=== PATIENT | male | born 1980 | race Caucasian/White ===

== ENCOUNTER 2017-11-07 22:59 | Emergency (ER) | payer OTHER ==
[2017-11-07 23:31] VITALS: BP 117/62; PULSE 82; TEMP 97.7; BMI 27.1
[2017-11-08] MEDS ORDERED: ACETAMINOPHEN 325 MG TABLET (FP) ONE (00:30)
[2017-11-08] MEDS ORDERED: ACETAMINOPHEN 500 MG TABLET (FP) PO ONE (00:40)
[2017-11-08] MEDS ORDERED: SODIUM CHLORIDE 0.9% 500 ML INFUS.BAG IV ONE (00:40)
--- NOTE | 2017-11-08 00:41 | PDOC ---
History of Present Illness - General Chief Complaint: Pain Stated Complaint: ABD PAIN Time Seen by Provider: 11/08/17 00:18 - History of Present Illness Initial Comments: 11/08/17 00:41 37 y.o. male presents with 5 day h/o R sided abdominal pain that is "sharp/ stabbing" constant with no radiation to his scrotum or flank. Patient notes associated NBNB emesis as well as non-bloody watery stools. Patient denies any fevers/chills and notes he has been tolerating PO intake though notes decreased appetite secondary to his symptoms. Pateitn further denies any dysuria/ hematuria or scrotal pain. Patient denies any chest pain, dyspnea, sick contacts or recent travel. Allergy: Lisinopril Surgical: ventral hernia repair, cataract Social: denies nicotine, denies alcohol, denies recreational drugs Past History - Past Medical History Allergies/Adverse Reactions: Allergies Allergy/AdvReac Type Severity Reaction Status Date / Time lisinopril Allergy Verified 11/07/17 23:30 Home Medications: Ambulatory Orders Hydrocodone/Ibuprofen [Vicoprofen 200-7.5 mg Tab] 1 each PO Q6H #12 tablet 08/15 Ibuprofen [Motrin -] 800 mg PO TID #30 tablet 08/15/15 Cardiac Disorders: Yes (afib) COPD: No HTN: Yes (no meds) - Immunization History Immunization Up to Date: No - Suicide/Smoking/Psychosocial Hx Smoking History: Current some day smoker Have you smoked in the past 12 months: No Number of Cigarettes Smoked Daily: 2 Information on smoking cessation initiated: No Hx Alcohol Use: No Drug/Substance Use Hx: Yes (Marijuana) Substance Use Type: Alcohol, Marijuana Review of Systems - Review of Systems Constitutional: No: Chills, Fever HEENTM: No: Eye Pain, Recent change in vision, Throat Pain Respiratory: No: Cough, Shortness of Breath, Stridor, Wheezing Cardiac (ROS): No: Chest Pain, Lightheadedness, Palpitations, Syncope ABD/GI: Yes: Diarrhea, Poor Appetite, Vomiting, Abdominal cramping. No: Constipated : No: Burning, Dysuria, Testicular Pain *Physical Exam - Vital Signs Last Vital Signs Temp Pulse Resp BP Pulse Ox 97.7 F 82 18 117/62 97 11/07/17 23:08 11/07/17 23:08 11/07/17 23:08 11/07/17 23:08 11/07/17 23:08 - Physical Exam General Appearance: Yes: Nourished, Appropriately Dressed HEENT: positive: EOMI, LIBAN Neck: positive: Tender, Supple Respiratory/Chest: positive: Lungs Clear. negative: Decreased Breath Sounds, Crackles, Stridor, Wheezing Cardiovascular: positive: S1, S2. negative: Murmur, Gallop/S3 Gastrointestinal/Abdominal: positive: Soft, Other ((-) Porter's sign; (+) RLQ tenderness, rebound, (-) peritoneal signs). negative: Hernia, Mass Musculoskeletal: negative: CVA Tenderness (R), CVA Tenderness (L) Extremity: positive: Normal Capillary Refill, Normal Inspection Integumentary: positive: Normal Color, Dry, Warm Neurologic: positive: Fully Oriented, Alert ED Treatment Course - LABORATORY CBC & Chemistry Diagram: 11/08/17 00:34 11/08/17 00:34 Medical Decision Making - Medical Decision Making 11/08/17 00:55 37 y.o. male with 5 day h/o sharp RLQ pain with associated emesis and loose stools. Rebound tenderness without peritoneal signs on PE. DDx includes appendicitis, bilary disease, colitis. Will obtain CBC, CMP + CT Abdomen. Reasess. 11/08/17 03:16 CT abdomen negative for acute appendicitis, normal liver, pancreas, kidneys, notes diverticulosis w/o acute diverticulitis. No leukocytosis, no electrolyte derangement. Patient resting comfortably, will send urine to r/o cystitis. 11/08/17 06:58 UA shows trace blood, nitrite (-), leukocyte esterase (-). Patient tolerating PO intake, ambulatory. Will discharge home with return precaution and instruction to f/u with PMD in the next 48 hours. *DC/Admit/Observation/Transfer Diagnosis at time of Disposition: Abdominal pain - Discharge Dispostion Disposition: HOME Condition at time of disposition: Fair Admit: No - Referrals - Patient Instructions Printed Discharge Instructions: DI for Abdominal Pain-Adult Additional Instructions: Follow up with your primary care doctor in the next 48 hours. Return to the Emergency Department for any new/worsening/concerning symptoms. - Post Discharge Activity
[2017-11-08 00:42] LABS: BASO % 0.4 % (0-2.0); EOS % 4.3 % (0-4.5); HEMATOCRIT 41.7 % (35.4-49); HEMOGLOBIN 14.5 GM/dL (11.7-16.9); LYMPH % 26.8 % (8-40); MCHC 34.7 g/dl (32.0-35.9); MEAN CELL VOLUME 92.1 fl (80-96); MEAN PLT VOLUME 8.7 fl (7.5-11.1); MONO % 7.1 % (3.8-10.2); NEUT % 61.4 % (42.8-82.8); PLATELET COUNT 270 K/MM3 (134-434); RBC 4.52 M/mm3 (4.00-5.60); RDW 13.4 % (11.9-15.9)
[2017-11-08 01:08] LABS: ALBUMIN 3.7 g/dl (3.4-5.0); ANION GAP 9 (8-16); BILIRUBIN,TOTAL 0.3 mg/dL (0.2-1.0); BLOOD UREA NITROGEN 22 mg/dL (7-18); CALCIUM 8.3 mg/dL (8.5-10.1); CHLORIDE 104 mmol/L (98-107); CO2 29 mmol/L (21-32); CREATININE 1.2 mg/dL (0.7-1.3); GLUCOSE,RANDOM 94 mg/dL (74-106); POTASSIUM 4.1 mmol/L (3.5-5.1); SGOT/AST 16 U/L (15-37); SGPT/ALT 25 U/L (12-78); SODIUM 142 mmol/L (136-145); TOT PROT 6.8 g/dl (6.4-8.2)
[2017-11-08 01:09] LABS: ALK PHOS 43 U/L (45-117); LIPASE 203 U/L (73-393)
[2017-11-08] MEDS ORDERED: morphine CARPU-JECT 4 MG/1 ML DISP.SYRIN IVPUSH ONE (01:17)
--- NOTE | 2017-11-08 01:24 | PDOC ---
Attending Attestation - Resident Resident Name: Emelia Duncan - ED Attending Attestation I have performed the following: I have examined & evaluated the patient, The case was reviewed & discussed with the resident, I agree w/resident's findings & plan, Exceptions are as noted - HPI HPI: 11/08/17 01:22 37yoM hx of intermittent pAF and diet-controlled HTN presnets w/ 3d of RLQ abd pain, n/v/d, anorexia. Pt is not on AC. surg hx : R inguinal hernia repair. no etoh/illicits NKDA AF VSS NAD RLQ TTP w/ voluntary guarding, no rebound. 37yoM w/ likely acute appendicitis vs. ileocecal inflammation. - labs - ekg - ivf, pain control - CTAP - dispo per results. - Physicial Exam PE: 11/08/17 01:23 as above - Medical Decision Making 11/08/17 01:23 as above
[2017-11-08 02:07] LABS: INR 0.99 (0.82-1.09); PROTHROMBIN TIME (PATIENT) 11.2 SEC (9.98-11.88)
[2017-11-08 02:10] LABS: ACTIVATED PTT 31.7 SECONDS (26.9-34.4)
[2017-11-08] MEDS ORDERED: MAG HYDROX/AL HYDROX/SIMETH 30 ML UNIT-DOSE CUP PO ONE (03:45)
[2017-11-08] MEDS ORDERED: FAMOTIDINE IV 20 MG/12 ML VIAL IVPUSH ONE (03:46)
[2017-11-08 05:09] LABS: PH,URINE 5.5 (5.0-8.0); URINE APPEARANCE CLEAR; URINE BILIRUBIN NEGATIVE (NEGATIVE); URINE BLOOD TRACE-LYSE (NEGATIVE); URINE COLOR LT. YELLOW; URINE GLUCOSE (UA) NEGATIVE (NEGATIVE); URINE KETONE NEGATIVE (NEGATIVE); URINE LEUK ESTERASE NEGATIVE (NEGATIVE); URINE NITRITE NEGATIVE (NEGATIVE); URINE PROTEIN NEGATIVE (NEGATIVE); URINE UROBILINOGEN 0.2 mg/dL (0.2-1.0)
--- NOTE | 2017-11-09 20:29 | EKG ---
Test Reason : Blood Pressure : / mmHG Vent. Rate : 072 BPM Atrial Rate : 072 BPM P-R Int : 164 ms QRS Dur : 092 ms QT Int : 430 ms P-R-T Axes : 035 041 040 degrees QTc Int : 470 ms NORMAL SINUS RHYTHM NORMAL ECG NO PREVIOUS ECGS AVAILABLE Confirmed by HELADIO LEON MD ([id number]) on 11/09/2017 8:29:24 PM Referred By: Confirmed By:HELADIO LEON MD
== END 2017-11-08 05:24 | disposition home or self-care (01) ==
LOC: SUPCPDRO 22:59 → JER 22:59
DX: R10.31 Right lower quadrant pain (principal); I10 Essential (primary) hypertension; I48.91 Unspecified atrial fibrillation; F17.210 Nicotine dependence, cigarettes, uncomplicated
CPT/HCPCS: 36415; 74177-TC; 80053; 81003; 83690; 85025; 85610; 85730; 86850; 86900; 86901; 93005; 93010; 99283-25